=== PATIENT | male | born 1975 | race Caucasian/White ===

== ENCOUNTER → 2023-11-04 | Outpatient (CLI) | payer SELFPAY ==
--- NOTE | 2023-11-04 13:55 | VDLE_ITS ---
Reason For Study: RLE Pain RIGHT LEFT GSV is normal. CFV is compressible, spontaneous, phasic, CFV is compressible, spontaneous, competent competent, and demonstrates normal and demonstrates pulsatile venous flow. augmentation. FV is compressible, spontaneous, competent and demonstrates pulsatile venous flow. POP V is compressible, spontaneous, and phasic. T/P Trunk is compressible. Acute deep vein thrombosis is noted in the Gastrocnemius V. It is dilated and NONCOMPRESSIBLE. Acute deep vein thrombosis is noted in the PTV. It is dilated and NONCOMPRESSIBLE. RT PerV is compressible. Procedure This is a venous duplex using B-mode, color flow and spectral Doppler. Exam performed in department. The exam was diagnostic. A preliminary report was called and/or faxed to Dr. Mclain. VL/Venous Duplex US, Unilateral Interpretation Summary Acute deep vein thrombosis is noted in the right gastrocnemius vein, posterior tibial vein Ordering Physician: Nagi Mclain Referring Physician: Nagi Mclain Performed By: Cy Denny RVT
== END | disposition home or self-care (01) ==
LOC: CVS 13:41
PROVIDERS: PCP Family Medicine; Referring Provider Family Medicine; Visit Provider Family Medicine
DX: M79.661 Pain in right lower leg (principal); M79.89 Other specified soft tissue disorders
CPT/HCPCS: 93971

== ENCOUNTER 2023-12-22 09:07 | Emergency (ER) | payer OTHER, SELFPAY ==
[2023-12-22 09:08] VITALS: BP 129/100; PULSE 95; RESP 18; TEMP 36.7; O2SAT 96; BMI 24.0
--- NOTE | 2023-12-22 09:48 | EDS_ITS ---
HPI History of Present Illness Chief Complaint: Abd Pain Narrative Narrative: Patient is a 48-year-old male with past medical history of DVT on Eliquis after gallbladder surgery and hiatal hernia surgery earlier this year who presents to the emergency department with a chief complaint of abdominal pain. Patient states that yesterday afternoon around 330 he developed some abdominal pain in the right lower portion of his abdomen. He states that his significant other had appendicitis in the past and concerned that he has developed appendicitis. He states that his pain is currently a 3 out of 10 however at its worst it is 10 out of 10. He states that he will get spasming pain. Denies any recent sick contacts. PFSH PFS Home Medications ?Medication ?Instructions ?Recorded ?Last Taken ?Type dicyclomine 10 mg capsule 10 mg PO TID #20 caps 12/22/23 Unknown Rx polyethylene glycol 3350 17 17 g PO DAILY #119 grams 12/22/23 Unknown Rx gram/dose oral powder (Miralax) Allergy/AdvReac Type Severity Reaction Status Date / Time No Known Allergies Allergy Verified 12/22/23 09:08 Surgical History (Updated 12/22/23 @ 11:13 by Cherri aPtel) History of cholecystectomy History of hernia repair Social History Smoking Status: Never smoker ROS ROS ED ROS Narrative Constitutional: Denies any fevers, chills, headaches, lightness, dizziness Cardiovascular: Denies chest pain or palpitations Respiratory: Denies coughing wheezing shortness of breath Abdomen: Complains of abdominal pain as noted above denies nausea vomit diarrhea states the stools been normal color : Denies any pain phonation, hematuria, polyuria, testicular pain, urethral discharge Neurological: Denies numbness, weakness, tingling Musculoskeletal: Denies back pain Skin: Denies rashes or lesions EXAM Physical Exam Narrative Exam Narrative: General: Patient lying in bed rest comfortably did not appear to be in acute distress Head: Atraumatic, normocephalic Eyes: PERRL bilateral, EOMI bilateral, no conjunctival injection noted Neck: Soft, supple, trachea midline Cardiovascular: Regular rate and rhythm no murmurs gallops rubs noted Respiratory: Clear to auscultation bilaterally no rales rhonchi wheeze noted Abdomen: Soft, nondistended, tender to palpation in the right lower quadrant no rebound or guarding on exam Extremities: +5/5 strength noted in the bilateral upper and lower extremities Neurological: Patient following commands knew that he was at [facility] years 2023 Skin: Warm, dry, intact Const Vital Signs: 12/22/23 09:08 12/22/23 13:17 Temperature 98.1 F 98.1 F Temperature Source Oral Pulse Rate 95 88 Respiratory Rate 18 16 Blood Pressure 129/100 H 117/91 H Blood Pressure Mean 109 99 Pulse Ox 96 100 Oxygen Delivery Method Room Air MDM MDM MDM Narrative Medical decision making narrative: Patient is a 48-year-old male who presented to the emerged part the chief complaint of abdominal pain. Patient will have a workup performed here on the differential diagnose includes but not limited to appendicitis, constipation, viral gastroenteritis, UTI, epididymitis. Once workup is obtained reviewed he will be reevaluated. Testicular exam performed no tenderness to palpation of the bilateral epididymitis, no tenderness palpation of the bilateral testicles, no concern for testicular torsion no urethral discharge noted. Patient CBC reviewed and showed no evidence leukocytosis white blood count normal at 7.6, hemoglobin was stable at 16.2, platelet count was noted to be normal at 215. Patient sodium normal 140, potassium normal at 4, creatinine was noted be normal at 0.96. Patient's AST and ALT were 71 and 210 respectively with an elevated total bilirubin of 2.30. I discussed with the patient he has never been told that his liver enzymes or total bilirubin have been elevated. Patient did have a cholecystectomy once again he has no tenderness to palpation in the right upper quadrant on repeat exam at 1321. Patient was advised to have his labs repeated by his primary care physician in the outpatient setting within the next couple days. Patient lipase normal at 31, urinalysis did not reveal any evidence of infection. Patient CT abdomen pelvis showed nonspecific fluid- filled small bowel loops without evidence of bowel obstruction could be due to mild enteritis. No evidence of acute appendicitis. Hepatomegaly and probable focal area of fatty infiltration. Did discuss these results with the patient he would like to go home at this point time. He was encouraged to follow-up with his primary care physician outpatient setting and have his labs repeated as noted above. He is advised to return with worsening symptoms or other concerns. He states that he has some trouble with constipation since his surgery earlier in the year. Patient will be given prescription for MiraLAX and Bentyl. Patient was advised to take these as prescribed. Once again patient advised to return with worsening symptoms or other concerns he is discharged home in stable condition with all question concerns answered at bedside. Lab Data Labs: Laboratory Results - last 24 hr 12/22/23 12/22/23 09:45 12:18 WBC 7.6 RBC 5.32 Hgb 16.2 Hct 47.8 MCV 89.8 MCH 30.5 MCHC 33.9 RDW Std Deviation 41.0 RDW Coeff of [place] 12.5 Plt Count 215 MPV 9.6 Immature Gran % (Auto) 0.300 Neut % (Auto) 74.2 H Lymph % (Auto) 16.8 L Dare % (Auto) 7.5 Eos % (Auto) 0.9 Baso % (Auto) 0.3 Absolute Neuts (auto) 5.7 Absolute Lymphs (auto) 1.28 Nucleated RBC % 0 Sodium 140 Potassium 4.0 Chloride 106 Carbon Dioxide 28.0 Anion Gap 6 BUN 15 Creatinine 0.96 Estim Creat Clear Calc 102.40 Est GFR (MDRD) Af Amer 109 Est GFR (MDRD) Non-Af 90 BUN/Creatinine Ratio 15.7 Glucose 96 Calcium 9.3 Total Bilirubin 2.30 H AST 71 H ALT 210 H Alkaline Phosphatase 58 Total Protein 7.2 Albumin 4.0 Globulin 3.2 Albumin/Globulin Ratio 1.2 Lipase 31 Urine Color Yellow Urine Clarity Clear Urine pH 7.0 Ur Specific [place] 1.010 Urine Protein 15 H Urine Glucose (UA) Normal Urine Ketones 15 H Urine Occult Blood Negative Urine Nitrite Negative Urine Bilirubin Negative Urine Urobilinogen Normal Ur Leukocyte Esterase Negative Urine RBC 0 SEEN Urine WBC 0 SEEN Ur Squamous Epith Cells 0 SEEN Urine Bacteria 0 SEEN Urine Mucus 0 SEEN Radiography Diagnostic Testing: Clinical Impression(s) from Imaging Studies Abdomen/Pelvis CT 12/22/23 11:04 IMPRESSION: 1. Nonspecific fluid-filled small bowel loops without evidence of bowel obstruction could be due to mild enteritis. 2. No evidence of acute appendicitis. 3. Hepatomegaly and probable focal area of fatty infiltration. Electronically Signed: Galindo Rosado MD at 11:42 EDT , Discharge Plan Triage Chief Complaint: Abd Pain ED Provider: Chris Dee Dx/Rx/DC Orders Clinical Impression: Abdominal pain Prescriptions: New dicyclomine 10 mg capsule 10 mg PO TID Qty: 20 0RF polyethylene glycol 3350 [Miralax] 17 gram/dose powder 17 g PO DAILY Qty: 119 0RF Primary Care Provider: Nagi Mclain Referrals: Nagi Mclain DO [Primary Care Provider] - Activity Restrictions/Additional Instructions: Take prescriptions as prescribed. Have your liver enzymes and total bilirubin repeated by your primary care physician as we discussed here. Return with worsening pain, fevers, vomiting and inability to tolerate oral intake. Print Language: [place] Islander Disposition Disposition: Home, Self Care
--- NOTE | 2023-12-22 11:04 | CT_ITS ---
STUDY: CT ABDOMEN AND PELVIS WITH CONTRAST REASON FOR EXAM: Male, 48 years old. RLQ pain RADIATION DOSAGE (If Supplied By Facility): CTDIvol = ( 13.05 ) mGy, DLP = ( 642.92 ) mGycm TECHNIQUE: IV 100mL Isovue-370 was administered. Transaxial images were obtained from the dome of the diaphragm to the symphysis pubis, Multiplanar coronal and sagittal images were reformatted. The protocol utilizes one or more of the following dose reduction techniques: automated exposure control, adjustment of mA and/or kV according to patient size,and/or use of iterative reconstruction technique. COMPARISON: No relevant prior comparison study available FINDINGS: The visualized lung bases are unremarkable. The visualized portions of the heart are within normal limits. Subtle area of hypodensity near the dome of the liver due to artifact or less likely focal fatty infiltration. Hepatomegaly. There are surgical clips in the gallbladder fossa consistent with a prior cholecystectomy. Normal spleen. Normal pancreas. Normal bilateral adrenal glands. Normal visualized stomach. Nonspecific fluid-filled small bowel loops without evidence of bowel obstruction. Fecal retention. Diverticulosis of the sigmoid colon without evidence of acute diverticulitis. Mild thickening of the cecum probably due to underdistention. The appendix is visualized and appears normal. Normal abdominal aorta. No retroperitoneal adenopathy. Normal right kidney. Normal left kidney. Normal urinary bladder. No pelvic mass. Normal abdominal wall. Normal osseous structures. CT/Abdomen/Pelvis W IV Cont ONLY IMPRESSION: 1. Nonspecific fluid-filled small bowel loops without evidence of bowel obstruction could be due to mild enteritis. 2. No evidence of acute appendicitis. 3. Hepatomegaly and probable focal area of fatty infiltration. Electronically Signed: Galindo Rosado MD at 11:42 EDT ,
[2023-12-22] MEDS: 0.9% Normal Saline (1000mL) 1,000 ML 999 ML IV (11:13)
[2023-12-22 11:16] LABS: Absolute Lymphocyte Count 1.28 X10^3/uL (0.83-4.51); Absolute Neutrophil Count 5.7 X10^3/uL (2.0-7.7); Basophil# 0.02 X10^3/uL; Basophil% 0.3 % (0-1); Eosinophil# 0.07 X10^3/uL; Eosinophils% 0.9 % (0-5); Hematocrit 47.8 % (40-54); Hemoglobin 16.2 g/dL (13.0-16.5); Lymphocyte # 1.28 X10^3/ul (0.83-4.51); Lymphocyte % 16.8 % (19-41); Mean Corp Hgb Conc 33.9 g/dL (32-36); Mean Corpuscular Hgb 30.5 pg (27.0-32.0); Mean Corpuscular Volume 89.8 fL (80-94); Mean Platelet Vol. 9.6 fl (6.2-12.0); Monocyte# 0.57 X10^3/uL; Monocyte% 7.5 % (0-10); NRBC Flagged by Analyzer 0 % (0-5); Neutrophil # 5.66 X10^3/uL (2.7-7.7); Neutrophil % 74.2 % (47-70); Platelet Count 215 K/mm3 (150-450); RBC Distribution Width CV 12.5 % (11.6-14.6); Red Blood Count 5.32 M/mm3 (4.6-6.2); White Blood Count 7.6 K/mm3 (4.4-11.0)
[2023-12-22 11:30] LABS: ALB/GLOB Ratio 1.2 RATIO (0.9-2.4); AST(SGOT) 71 U/L (15-37); Alanine Aminotransfer ALT/SGPT 210 U/L (16-61); Alkaline Phosphatase 58 U/L (45-117); Anion Gap 6 (5-15); BUN 15 mg/dL (7-18); BUN/Creat Ratio 15.7 RATIO (10-20); Calcium,Total 9.3 mg/dL (8.5-10.1); Chloride 106 mmol/L (98-107); Creatinine, Serum 0.96 mg/dL (0.70-1.30); EST Glomerular Filtration Rate 90 mL/min (>60); Est Glom Filt Rate - Afr Amer 109 mL/min (>60); Globulin 3.2 g/dL (2.2-4.2); Glucose 96 mg/dL (74-106); Lipase 31 U/L (13-75); Protein, Total 7.2 g/dL (6.4-8.2); Sodium Level 140 mmol/L (136-145)
[2023-12-22 12:23] LABS: Bacteria 0 SEEN /hpf (None Seen); Mucous, Urine 0 SEEN /hpf (<or=2+); Red Blood Cells-Urine 0 SEEN /hpf (0-5); Squamous Epithelial Cells - UA 0 SEEN /hpf (0-5); White Blood Cells 0 SEEN /hpf (0-5)
[2023-12-22 12:27] LABS: Color, Urine Yellow (Yellow); Glucose, Dipstick Normal (Normal); Ketone-Dipstick 15 mg/dl (Negative); Leukocyte Esterase-Dipstick Negative /ul (Negative); Nitrite-Dipstick Negative (Negative); Occult Blood-Urine Negative /ul (Negative); Protein-Dipstick 15 mg/dl (Negative); Urine Bilirubin Dipstick Negative (Negative); Urine Clarity Clear (Clear); Urine Urobilinogen Normal (Normal)
[2023-12-22 13:17] VITALS: BP 117/91; PULSE 88; RESP 16; TEMP 36.7; O2SAT 100
== END 2023-12-22 13:33 | disposition home or self-care (01) ==
PROVIDERS: Emergency Provider Emergency Medicine; PCP Family Medicine; Visit Provider Emergency Medicine
DX: R10.31 Right lower quadrant pain (principal); Z86.718 Personal history of other venous thrombosis and embolism; Z79.01 Long term (current) use of anticoagulants; Z90.49 Acquired absence of other specified parts of digestive tract
CPT/HCPCS: 74177; 80053; 81001; 83690; 85025; 96360; 96361; 99282; J7030; Q9967